=== PATIENT | male | born 1960 | race Caucasian/White ===

== ENCOUNTER 2017-05-23 10:39 | Day surgery (SDC) | payer BC ==
[~2017-05-23 10:39] MED LIST: ACETAMINOPHEN 500 MG TABLET PO PRN; HYDROmorphone HCL 2 MG/ML VIAL IV PRN; MAG HYDROX/ALUMINUM HYD/SIMETH 30 ML UDC PO PRN; MAGNESIUM HYDROXIDE 30 ML UDC PO PRN; ONDANSETRON HCL/PF 2 MG/ML VIAL IV PRN; PROMETHAZINE HCL 25 MG in DEXTROSE 5 % IN WATER 50 ML IV PRN; RINGER'S SOLUTION,LACTATED 1,000 ML IV PRN; ZOLPIDEM TARTRATE 5 MG TABLET PO PRN; ceFAZolin SODIUM 1 GM VIAL IV PRN; diphenhydrAMINE HCL 50 MG/ML VIAL IV PRN; oxyCODONE HCL/ACETAMINOPHEN 1 TAB TABLET PO PRN
[2017-05-23] MEDS ORDERED: RINGER'S SOLUTION,LACTATED 1,000 ML IV ONE (11:15)
[2017-05-23] MEDS ORDERED: BUPIVACAINE HCL/EPINEPHRINE 10 ML VIAL IJ ONE ×2 (11:50)
[2017-05-23] MEDS: ROPIVACAINE HCL/PF 40 MG in NORMAL SALINE 16 ML IJ PRN ×2 (12:11→12:15)
--- NOTE | 2017-05-23 12:28 | OR ---
Operative Report - Dictated Report Narrative: Date: 05/23/2017 Physician: Malachi Mckeon M.D. Hospital Account Manager: Dmitriy Marc PA-C Preoperative diagnosis: Left Knee medial meniscus tear Postoperative diagnosis: Left Knee medial meniscus tear, anterior medial plica Procedure: Left knee arthroscopy with partial medial meniscectomy, excision of anterior medial plica Anesthesia: MAC Plus local Complications: None Estimated blood loss: Minimal Tourniquet time: None Specimens: None Retained implants: None Drains: None Indications: Mr. Sadler Is a 57 year-old gentleman who has been followed in my clinic with complaints of knee pain consistent with suspected medial joint pathology. Physical exam and diagnostic imaging were consistent with these complaints and concern for medial meniscus pathology. Conservative measures have failed including, but not limited to, passage of time, activity modification, medications, and injections. The risks, benefits, and alternatives were discussed in clinic. The risks being , bleeding, infection, blood clots, nerve, tendon, ligament, blood vessel injury, persistent pain, arthrosis, need for additional procedures, and persistent symptoms. Consent was obtained in the clinic. Procedure: After marking the correct extremity in the preoperative holding area, a timeout was performed in the operating room. IV antibiotics consisting of Ancef were administered prior to the procedure. A well-padded tourniquet was applied to the operative upper thigh. The leg was prepped and draped in a standard sterile fashion. 0.5% Marcaine with epinephrine was infused into the projected portal sites as well as the intra-articular space. A jo incision was made for inferior lateral portal. A blunt trocar and cannula was introduced into the knee. The suprapatellar pouch revealed no pathology. The medial patella facet showed grade 1 change. The lateral patella facet showed grade 2 change. The trochlea showed grade 1 change. The medial gutter revealed a thickened abrading anterior medial plica. The medial joint space was then entered utilizing a lateral post and valgus stress. A spinal needle was utilized for guidance into placement of an anterior medial portal. This was placed just superior to the medial meniscus ensuring that we could reach the posterior aspect of the medial joint space. A jo incision was made in the site, and the probe was introduced to the knee. The medial joint space was examined, and the medial femoral condyle showed grade 2 change. The medial tibial plateau showed grade 2 with a small focal area of grade 4 at the area of the meniscus tear. The medial meniscus had a flipped parrot-beak tear involving the posterior one half of the meniscus. It involved the inferior and central 50%. The notch was then examined, and the ACL was noted to be intact. The PCL was noted to be intact. The lateral joint space was then examined using a varus force in the figure 4 position. Lateral femoral condyle showed grade 1 change. Lateral tibial plateau showed grade 1 change. The lateral meniscus showed no tear but small fraying. The lateral gutter showed no pathology. Having identified the surgical pathology, a series of biters and qiana were utilized in order to debride the medial meniscus down to stable margin. This resulted in resection of the posterior one half to a depth of approximately 50%. Where the root of the parrot-beak tear was extended into the red red zone and this was debrided down to essentially the joint capsule. Once it was felt that we adequately addressed the pathology, the knee was thoroughly irrigated. The fluid was evacuated ensuring that we have removed all meniscal, chondral, and any other loose bodies. A final evaluation of the joint showed no additional pathology. The fluid was then evacuated of the knee, and the trocar and camera were removed from the joint. The wounds were closed with interrupted nylon after placing 20 mL of 0.2% ropivacaine into the joint. Dressings consisting of Xeroform, 4 x 4, ABD, soft roll, and an Tono were applied. All sponge, needle, blade, and instrument counts were correct prior to closing the wounds. The patient was awoken and transferred to the postanesthesia care unit in stable condition.
[2017-05-23 16:37] VITALS: BP 151/88
[2017-05-23] MEDS ORDERED: SENNOSIDES/DOCUSATE SODIUM 1 TAB TABLET PO SCH (21:00)
== END 2017-05-23 10:40 | disposition home or self-care (01) ==
LOC: AMB 10:39
PROVIDERS: ATTEND Orthopaedic Surgery
PROC: 0SBD4ZZ Excision of Left Knee Joint, Percutaneous Endoscopic Approach (ICD-10-PCS; principal; 2017-05-23 15:15)
DX: M23.204 Derangement of unspecified medial meniscus due to old tear or injury, left knee (principal); M67.52 Plica syndrome, left knee; E03.9 Hypothyroidism, unspecified; E78.5 Hyperlipidemia, unspecified; K21.9 Gastro-esophageal reflux disease without esophagitis; K58.9 Irritable bowel syndrome, unspecified; F32.9 Major depressive disorder, single episode, unspecified; F17.210 Nicotine dependence, cigarettes, uncomplicated; Z68.34 Body mass index [BMI] 34.0-34.9, adult

== ENCOUNTER 2019-05-18 09:02 | Observation (INO) ==
--- NOTE | 2019-05-18 09:27 | ERNOTE ---
Neuro HPI ER Record Date of Service: 05/18/19 Presenting Symptoms: other - not acting right Time Seen by Provider: 05/18/19 09:11 Source: patient Exam Limitations: no limitations Immunizations: IMMUNIZATION HX History of Influenza Vaccine More Information Required Hx Pneumococcal Vaccination More Information Required Allergies/Adverse Reactions: Allergies Allergy/AdvReac Type Severity Reaction Status Date / Time fenofibrate Allergy Intermediate hives Verified 02/26/19 13:17 sulfamethizole Allergy Intermediate hives Verified 02/26/19 13:17 Home Medications: HOME MEDICATIONS Aspirin [Aspirin Enteric Coated] 81 mg PO DAILY 07/13/15 [Last Taken Unknown] Cholecalciferol (Vitamin D3) [Vitamin D3] 50,000 unit PO Q7D 07/13/15 [Last Taken Unknown] Calcium Carbonate/Vitamin D3 [Calcium 500 + Vit D3 400 Tab] 1 ea PO DAILY 05/19/17 [Last Taken Unknown] fenofibrate nanocrystallized 145 mg tablet 145 mg PO DAILY #90 tab 08/07/18 [Last Taken Unknown] lansoprazole 30 mg capsule,delayed release 30 mg PO DAILY #30 cap 08/26/18 [Last Taken Unknown] diflunisal 500 mg tablet 500 mg PO TID #90 tab 11/10/18 [Last Taken Unknown] atorvastatin 40 mg tablet 40 mg PO HS #30 tab 12/07/18 [Last Taken Unknown] ergocalciferol (vitamin D2) 50,000 unit capsule 50,000 unit PO QWEEK #14 cap 01/06/19 [Last Taken Unknown] lamotrigine 200 mg tablet 200 mg PO QHS #30 tab 02/12/19 [Last Taken Unknown] aripiprazole 15 mg tablet See Rx Instructions PO DAILY #4 tab 02/26/19 [Last Taken Unknown] lorazepam 1 mg tablet 1 mg PO TID PRN 02/26/19 [Last Taken Unknown] lurasidone 20 mg tablet 20 mg PO DAILY #15 tab 02/26/19 [Last Taken Unknown] levothyroxine 25 mcg tablet See Rx Instructions .ROUTE .COMPLEX #90 tablet 04/26/19 [Last Taken Unknown] probenecid 500 mg-colchicine 0.5 mg tablet 1 tab PO BID #60 tab 05/03/19 [Last Taken Unknown] - History of Present Illness Narrative: Patient presents to the ED from work for not acting right. According to work he was not acting right yesterday and this was worse today at work so he was brought here. He does not know why he is here. he has no specific complaints. No headache, no chest pain. No abdominal pain. He really cannot tell me what he thinks is wrong. Work noticed behavior changes. No fever. Denies trauma. No N/T/W. Has not seen anyone else for this. He is not acting normally, seems confused and not behaving normally. Worsenign since yesterday. Onset: other - present and apparently gradually worsening since yesterday. - Character of Deficits New weakness: Present: other - none Altered sensation: Present: other - none Additional Deficits: Absent: vision problems, impaired speech, decrease ability to stand, off balance Baseline Cognition: Present: alert, oriented x 4 Baseline Gait: Present: walks w/o assistance Associated Symptoms: Denies: fever/chills, neck/back pain, headache, seizure, decreased responsiveness Prior Treament: Denies: recently seen Review of Systems - Review of Systems Constitutional: Absent: fever EYE: Present: no symptoms reported ENT: Absent: sore throat Respiratory: Absent: shortness of breath Cardiology: Absent: chest pain Gastrointestinal/Abdominal: Absent: abdominal pain Genitourinary: Absent: dysuria Neurological: Absent: weakness, numbness, tingling All Other Systems: All systems neg except as marked Medical History (Updated 05/18/19 @ 14:02 by ANGY Pelayo) GERD (gastroesophageal reflux disease) (Chronic) Bipolar II disorder (Acute) Current episode depressed, moderate, in partial remission GERD (gastroesophageal reflux disease) (Chronic) Onset Date: Unknown Hypothyroidism (Chronic) Alcohol abuse (Chronic) Onset Date: Unknown Bipolar disorder, current episode mixed, moderate (Chronic) Onset Date: U nknown Improving Depression (Chronic) Onset Date: Unknown Bipolar affective disorder (Chronic) Onset Date: Unknown Arthritis (Chronic) Onset Date: Unknown Anxiety (Chronic) Onset Date: Unknown Environmental allergies Onset Date: Unknown Gout Onset Date: Unknown Problem with sexual function Onset Date: Unknown Colon polyps Onset Date: Unknown Irregular bowel habits Onset Date: Unknown Meningitis Onset Date: Unknown Psychiatric inpatient Onset Date: Unknown Surgical History: Surgical History (Updated 05/18/19 @ 14:02 by ANGY Pelayo) H/O adenoidectomy Onset Date: Unknown H/O colonoscopy Onset Date: ~2014 dr coto 2006- tubular adenoma. dr kelley 2014- negative recheck 10 years History of arthroscopic knee surgery Onset Date: Unknown left 2017 right 2008 History of tonsillectomy Onset Date: Unknown Hx of esophagogastroduodenoscopy Onset Date: Unknown Family History: Family History (Updated 06/22/18 @ 14:10 by Lisa Yang LPN) Mother , age 71 Myocardial infarction Brother , age 55 Hepatitis C Social History: (Last Reviewed 05/18/19 @ 09:24 by Trevor Grijalva MD) Social History: fdc: No Marital status: household members: none current occupational status: employed current occupation: factory machine computer operator Highest education level completed: high school graduate Service: No Tobacco: Smoking Status: Current some day smoker Alcohol: alcohol intake: current Substance Use: substance use type: does not use Dietary Habits: caffeine: Yes Physical Exam - Physical Exam General Appearance: Present: alert, no apparent distress Head Exam: Present: normal inspection, no evidence of injury Eye Exam: Normal inspection: bilateral, PERRL: bilateral Ears, Nose, Throat: Present: normal ENT inspection Neck: Present: normal inspection, nontender, supple, other - no meningeal signs Respiratory: Present: no respiratory distress, normal breath sounds, no accessory muscle use, lungs clear Cardiovascular/Chest: Present: regular rate, rhythm, normal peripheral pulses Gastrointestinal/Abdominal: Present: normal bowel sounds, nontender, nondistend ed, soft Back Exam: Present: normal range of motion. Absent: CVA tenderness (R), CVA tenderness (L) Extremity Exam: Present: normal inspection, non-tender, normal range of motion Neurological Exam: Present: alert, no motor/sensory deficits, other - NIH - 0. He knows month and year, misses day of month. Knows location and president . He does however just stare at the ceiling, seems very slow anddoes not seem to be acting normally. Skin Exam: Present: normal color, warm/dry Morrow Coma Scale - Assess Eye Opening: Spontaneous Motor: Obeys Commands Verbal: Oriented - Total Coma Scale Total: 15 Progress - Results and Orders Patient's Lab Results:: I have reviewed the patient's lab results. - Vital Signs Patient's Vital Signs:: I have reviewed the patient's vital signs. Vital Signs: Vital Signs 08/06/19 09:02 Temperature 37.0 C Pulse Rate 109 H Respiratory Rate 15 Blood Pressure 160/100 H O2 Sat by Pulse Oximetry 100 - EKG EKG #1 EKG: NSR EKG read: Interp. by me EKG Comments: NSR rate 99. Non-specific, no STEMI noted. - CT/Ultrasound CT/Ultrasound Narrative: I reviewed official radiology report for head CT - Progress/Reassessment Chief Complaint: Altered Mental Status Progress Note-Subjective: 05/18/19 14:21 Patient has no clear etiology of his Sx. Seen in ED by Psych and at that time he was not oriented. Psych felt is was not likely a primary psychiatric issue. He certainly cannot be discharged the way he is. I spoke with Dr Pate who will admit with TSH added on and MRI ordered. Patient and family agreeable. Departure Clinical Impression: Mental status alteration, Behavioral change - Departure Disposition: Still a patient Condition: Stable Referrals: Isidro Palmer MD [Primary Care Provider] -
[2019-05-18 09:45] LABS: Hematocrit 43.9 % (42.0-52.0); Hemoglobin 15.4 gm/dL (13.5-18.0); Mean Corpuscular Hgb Conc 35.1 g/dl (32-36); Mean Platelet Volume 9.5 fl (8-11.3); Neutrophil # 4.8 K/mm3 (1.3-6.0); Neutrophil % 71.9 % (42-75.0); Platelet Count 303 K/mm3 (150-450); Red Blood Count 4.67 M/mm3 (4.7-6.0); Red Cell Distribution Width 13.5 % (11.5-14.0); White Blood Count 6.6 K/mm3 (4.0-10.5)
[2019-05-18 10:05] LABS: ALT 28 U/L (19-67); AST 31 U/L (0-48); Albumin * 3.6 gm/dl (3.4-5.0); Alkaline Phosphatase * 47 U/L (50-170); Anion Gap 19.3 mmol/L (6.8-13.8); BUN/Creatinine Ratio 15.1 (9.0-21.6); Bilirubin, Total 0.7 mg/dL (0.0-1.1); Blood Urea Nitrogen 23 mg/dL (6-23); Ca. Corrected For Albumin 9.3 mg/dL (8.4-10.2); Calcium * 9.3 mg/dL (7.9-10.9); Carbon Dioxide 21.7 mmol/L (24-32.6); Chloride 105 mmol/L (97-106); Glucose * 110 mg/dL (70-110); Salicylate 7.6 mg/dL (2.8-20.0); Sodium 142 mmol/L (132-142); Total Protein 6.7 gm/dL (6.2-8.2); Troponin I 0.029 ng/mL (0.00-0.10)
[2019-05-18 12:37] LABS: Urine Bilirubin Negative (NEGATIVE); Urine Blood Negative /ul (NEGATIVE); Urine Ketone Negative (NEGATIVE); Urine Nitrite Negative (NEGATIVE); Urine Protein Negative (NEGATIVE); Urine Urobilinogen Normal (NORMAL)
[2019-05-18 12:47] LABS: Urine Appearance Clear (CLEAR); Urine Bacteria None Seen; Urine Color Yellow; Urine RBC None Seen /hpf (0-5); Urine WBC TRACE /hpf (0-5)
[2019-05-18 12:54] LABS: Cocaine Ur Negative (NEGATIVE); Urine Barbiturate Negative (NEGATIVE); Urine Benzodiazepines Negative (NEGATIVE); Urine Opiates Negative (NEGATIVE); Urine PCP Negative (NEGATIVE); Urine THC Negative (NEGATIVE)
[2019-05-18] MEDS ORDERED: MULTIVIT INFUSN,ADULT 4,VIT K 10 ML, THIAMINE HCL 100 MG in NORMAL SALINE 1,000 ML IV SCH (13:30)
--- NOTE | 2019-05-18 14:02 | CONS ---
[facility] - General Date of Service: 05/18/19 Narrative: Isidro is a 59 year old male with a history of bipolar disorder and alcohol abuse who presented to emergency department 05/18/19. Isidro reportedly appeared for work this morning as scheduled but was not acting himself and seemed confused so his automation and controls supervisor at work sent him to emergency department for evaluation. Isidro has been receiving outpatient psychiatric treatment for bipolar disorder from this author and was last evaluated February 2019. Isidro failed to attend scheduled follow- up appointment in March 2019 after changing Abilify to Latuda to better treat depression. Isidro is not answering most questions appropriately. He states, "I'm fine" repeatedly when asked to identify the year and again states "I'm fine" when asked to identify the advertising vice president. Isidro answers "I'm fine" in response to most questions asked of him. He is able to identify he is in [facility] and able to state his first and last name correctly. Initially, Isidro states "Evelyne" when asked about medications he has been taking recently. Isidro later does state that he has been taking Lamictal once a day every day. He states, "this morning" when asked the time of his last dose of PRN lorazepam. Earlier in assessment, Isidro had stated he forgot to take his medications this morning. Isidro states "no, ma'am" when asked if he had used any drugs recently. He also states "no, ma'am" when asked how much alcohol he has been consuming in the last week. He does not answer questions about sleep or appetite. Isidro denies suicidal ideation or homicidal ideation. Isidro's brother and reported power of pass worker reports Isidro has had some moments of confusion over the last few months. He states that one day, Isidro had trouble parking his car at work then left his car running all day while he was at work and didn't realize it. Isidro's brother believes this occurred sometime in February after starting a new medication in February. Per Isidro's brother, he stopped taking Latuda after that incident of leaving his car running because he believed that was the cause of his confusion that day. Isidro's brother also states Isidro has made some odd remarks that don't make sense such as stating, "I parked where you told me to," after Isidro's brother called Isidro one morning to check on him after spending the evening prior with him. Isidro's brother states Isidro's statement of "I parked where you told me to" was not prompted and was not an appropriate response during their conversation. Isidro's brother states Isidro had told him that he has been feeling depressed and that Isidro had told him he had scheduled an appointment with this author to have medications for depression adjusted. Per Isidro's brother, aside from the few moments of odd remarks or the day of leaving his car running, Isidro has been acting "normal" and conversing appropriately. Isidro's brother states Isidro has had moments of more acute confusion and moments of being more oriented since Isidro's brother arrived at emergency department this morning. Isidro's brother confirms that Isidro has been continuing to drink 6-12 beers nearly every day for the last several months and has not made an attempt to stop drinking alcohol recently. Isidro's brother states he did have one episode of profound confusion and altered mental status approximately 20 years ago and states this was related to him using illicit drugs such as LSD. Isidro's brother also notes Isidro has been working a lot of mandatory overtime at work recently. Source: patient, family, RN/MD Exam Limitations: clinical condition - confusion - History of Present Illness Allergies/Adverse Reactions: Allergies fenofibrate Allergy (Intermediate, Verified 02/26/19 13:17) hives sulfamethizole Allergy (Intermediate, Verified 02/26/19 13:17) hives Home Medications: Home Medications Medication Instructions Recorded Last Taken Aspirin [Aspirin Enteric Coated] 81 mg PO DAILY 07/13/15 Unknown Cholecalciferol (Vitamin D3) 50,000 unit PO Q7D 07/13/15 Unknown [Vitamin D3] Calcium Carbonate/Vitamin D3 1 ea PO DAILY 05/19/17 Unknown [Calcium 500 + Vit D3 400 Tab] fenofibrate nanocrystallized 145 145 mg PO DAILY #90 tab 08/07/18 Unknown mg tablet lansoprazole 30 mg capsule,delayed 30 mg PO DAILY #30 cap 08/26/18 Unknown release diflunisal 500 mg tablet 500 mg PO TID #90 tab 11/10/18 Unknown atorvastatin 40 mg tablet 40 mg PO HS #30 tab 12/07/18 Unknown ergocalciferol (vitamin D2) 50,000 50,000 unit PO QWEEK #14 cap 01/06/19 Unknown unit capsule lamotrigine 200 mg tablet 200 mg PO QHS #30 tab 02/12/19 Unknown aripiprazole 15 mg tablet See Rx Instructions PO DAILY #4 tab 02/26/19 Unknown lorazepam 1 mg tablet 1 mg PO TID PRN 02/26/19 Unknown lurasidone 20 mg tablet 20 mg PO DAILY #15 tab 02/26/19 Unknown levothyroxine 25 mcg tablet See Rx Instructions .ROUTE 04/26/19 Unknown .COMPLEX #90 tablet probenecid 500 mg-colchicine 0.5 1 tab PO BID #60 tab 05/03/19 Unknown mg tablet Procedures Closure of skin and subcutaneous tissue of other sites (03/30/08) ENDO RECTUM POLYPECTOMY (04/11/10) Endoscopic polypectomy of large intestine (03/23/08) Excision of Left Knee Joint, Percutaneous Endoscopic Approach (05/23/17) Excision of semilunar cartilage of knee (11/26/07) Inspection of Lower Intestinal Tract, Via Natural or Artificial Opening Endoscopic (07/28/15) Review of Systems - Review of Systems Generalized/Overall Review: Present: No Symptoms Reported Neurological: Present: Other - confusion Physical Examination - Exam Narrative: Visit lasts approximately 20 minutes. Vital Signs: Vital Signs - Last Taken Temp 37.0 C 05/18/19 09:10 Pulse 97 05/18/19 10:01 Resp 14 05/18/19 10:01 BP 140/89 H 05/18/19 10:01 Pulse Ox 99 05/18/19 10:01 O2 Oxygen Delivery Method Room Air Constitutional: Present: Alert, Cooperative. Absent: Oriented x3 Neurologic: Present: alert, other - oriented to self and place. States year is "[birth year]." Unable to identify mechanical engineering coop.. Absent: oriented x 3 Appearance: Present: appropriate appearance, impaired recent memory. Absent: appropriate insight Eye contact: Present: good eye contact, decreased rate of speech Thoughts: Present: no apparent hallucination - Results and Findings: Narrative: Discussed plan of care with Dr. Grijalva. Acute mental status changes that patient is experiencing not likely related to bipolar depression and this author has not adjusted any psychotropic medications recently. Patient's brother states he will look to see what medications patient has been taking recently. Concern for mental status change being related to chronic alcohol abuse. He advises he will obtain brain MRI for further evaluation. Lab/Microbiology results last 24 hrs: Abnormal/Pending Laboratory Last 24 HRS 05/18/19 05/18/19 09:38 09:38 RBC 4.67 L MCH 33.0 H Immature Gran % (Auto) 0.60 H Immature Gran # (Auto) 0.04 H Lymphocytes % 12.6 L Monocytes % 12.6 H Lymphocytes # 0.83 L Carbon Dioxide 21.7 L Anion Gap 19.3 H Creatinine 1.52 H Est GFR (Non-Af Amer) 50 L Alkaline Phosphatase 47 L Acetaminophen Less than 0.2 L - Assessments/Findings (1) Mental status alteration Problem: Acute
[2019-05-18] MEDS ORDERED: lamoTRIgine 100 MG TABLET PO SCH (21:00)
[2019-05-18] MEDS ORDERED: ROSUVASTATIN CALCIUM 20 MG TABLET PO SCH (21:00)
[2019-05-18] MEDS ORDERED: ROSUVASTATIN CALCIUM 10 MG TABLET ONE (21:31)
[2019-05-19] MEDS ORDERED: NORMAL SALINE 1,000 ML IV PRN (06:00)
[2019-05-19] MEDS ORDERED: LEVOTHYROXINE SODIUM 25 MCG TABLET PO SCH (07:00)
[2019-05-19] MEDS ORDERED: PANTOPRAZOLE SODIUM 40 MG TABLET.EC PO SCH (07:00)
[2019-05-19] MEDS: DIFLUNISAL 500 MG PO SCH ×3 (08:40→16:34)
[2019-05-19] MEDS ORDERED: ASPIRIN 81 MG TABLET.DR PO SCH (09:00)
--- NOTE | 2019-05-19 11:46 | HP ---
Chief Complaint - Chief Complaint Date of Service: 05/19/19 Time of Service: 11:12 Chief Complaint: ams History of Present Illness: 59-year-old male presented to the ER with altered mental status. Patient has history of bipolar disorder has been off his medications for the last few months. Patients family stated that he reported to work as usual but was unable to follow commands and was very flat affected. Boss [facility]. According to family members he was not acting right today before either. Today patient is fairly nonverbal, only responding to questions with I am fine or okay. Patient is alert oriented x1, again his name right only. Tox screen in the ER was negative. MRI of the brain also performed while in the ER which came back showing no evidence of acute infarct or intracranial mass. There was mild lateral ventricular enlargement noted on exam with possible normal pressure hydrocephalus. Discussed the symptoms of this issue with the patient we denied any gait disturbances or issues with incontinence. Family also denied any of these issues. His lab work-up initially was fairly benign with a normal white count and no shift. He did have a mild acute kidney injury with a creatinine of 1.52, baseline around 1.3. Other labs within normal limits and are not concerning. Initial vital signs are stable. Patient was admitted to the floor due to altered mental status without a cause. Evelyne Galindo track service worker was consulted to evaluate the patient and thought that there was a medical cause behind his confusion and flat affect and not just solely due to his bipolar depression. Medical History (Updated 05/18/19 @ 14:25 by Trevor Grijalva MD) GERD (gastroesophageal reflux disease) (Chronic) Bipolar II disorder (Acute) Current episode depressed, moderate, in partial remission GERD (gastroesophageal reflux disease) (Chronic) Onset Date: Unknown Hypothyroidism (Chronic) Alcohol abuse (Chronic) Onset Date: Unknown Bipolar disorder, current episode mixed, moderate (Chronic) Onset Date: Unknown Improving Depression (Chronic) Onset Date: Unknown Bipolar affective disorder (Chronic) Onset Date: Unknown Arthritis (Chronic) Onset Date: Unknown Anxiety (Chronic) Onset Date: Unknown Environmental allergies Onset Date: Unknown Gout Onset Date: Unknown Problem with sexual function Onset Date: Unknown Colon polyps Onset Date: Unknown Irregular bowel habits Onset Date: Unknown Meningitis Onset Date: Unknown Psychiatric inpatient Onset Date: Unknown Surgical History: Surgical History (Updated 05/18/19 @ 14:02 by ANGY Pelayo) H/O adenoidectomy Onset Date: Unknown H/O colonoscopy Onset Date: ~2014 dr coto 2005- tubular adenoma. 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 Highest education level completed: high school graduate Service: No Tobacco: Smoking Status: Current some day smoker Alcohol: alcohol intake: current Substance Use: substance use type: does not use Dietary Habits: caffeine: Yes Review Of Systems (GEN) - Review of Systems Additional Comments: Review of systems unable to be obtained due to patient's flat affect and refusal to answer questions Immunizations: IMMUNIZATION HX History of Influenza Vaccine More Information Required Hx Pneumococcal Vaccination More Information Required Allergies/Adverse Reactions: Allergies Allergy/AdvReac Type Severity Reaction Status Date / Time fenofibrate Allergy Intermediate hives Verified 05/18/19 16:04 sulfamethizole Allergy Intermediate hives Verified 05/18/19 16:04 Home Medications: HOME MEDICATIONS Aspirin [Aspirin Enteric Coated] 81 mg PO DAILY 07/13/15 [Last Taken Unknown] Calcium Carbonate/Vitamin D3 [Calcium 500 + Vit D3 400 Tab] 1 ea PO DAILY 05/19/17 [Last Taken Unknown] fenofibrate nanocrystallized 145 mg tablet 145 mg PO DAILY #90 tab 08/07/18 [Last Taken Unknown] lansoprazole 30 mg capsule,delayed release 30 mg PO DAILY #30 cap 08/26/18 [Last Taken Unknown] diflunisal 500 mg tablet 500 mg PO TID #90 tab 11/10/18 [Last Taken Unknown] atorvastatin 40 mg tablet 40 mg PO HS #30 tab 12/07/18 [Last Taken Unknown] ergocalciferol (vitamin D2) 50,000 unit capsule 50,000 unit PO QWEEK #14 cap 01/06/19 [Last Taken Unknown] lamotrigine 200 mg tablet 200 mg PO QHS #30 tab 02/12/19 [Last Taken Unknown] aripiprazole 15 mg tablet See Rx Instructions PO DAILY #4 tab 02/26/19 [Last Taken Unknown] lorazepam 1 mg tablet 1 mg PO TID PRN 02/26/19 [Last Taken Unknown] lurasidone 20 mg tablet 20 mg PO DAILY #15 tab 02/26/19 [Last Taken Unknown] levothyroxine 25 mcg tablet See Rx Instructions .ROUTE .COMPLEX #90 tablet 04/26/19 [Last Taken Unknown] probenecid 500 mg-colchicine 0.5 mg tablet 1 tab PO BID #60 tab 05/03/19 [Last Taken Unknown] Exam - Exam Vital Signs: Vital Signs - Last Taken Temp 36.4 C 05/19/19 07:00 Pulse 64 05/19/19 07:00 Resp 17 05/19/19 07:00 BP 175/89 H 05/19/19 07:00 Pulse Ox 99 05/19/19 07:00 Constitutional: Present: Alert, Looks Older than stated age. Absent: Oriented x3 - X1, Cooperative Eye Exam: bilateral eye: normal inspection, PERRL, EOMI Neck: Present: non-tender, full range of motion, supple Back Exam: Present: normal inspection, no CVA tenderness Respiratory: Present: chest non-tender, lungs clear Cardiovascular/Chest: Present: normal peripheral pulses, regular rate, rhythm, no murmur Abdomen: Present: Normal bowel sounds, soft, nontender Neurologic: Present: other - Unable to perform due to patient's unwillingness to cooperate Appearance: Present: disheveled, impaired insight, impaired remote memory Eye contact: Absent: cooperative, good eye contact Thoughts: Absent: normal mood /affect - Patient fairly flat affect, blunted Diagnostic Studies: Laboratory Results WBC 6.6 K/mm3 (4.0-10.5) 05/18/19 09:38 RBC 4.67 M/mm3 (4.7-6.0) L 05/18/19 09:38 Hgb 15.4 gm/dL (13.5-18.0) 05/18/19 09:38 Hct 43.9 % (42.0-52.0) 05/18/19 09:38 MCV 94.0 fl (78-100) 05/18/19 09:38 MCH 33.0 pg (27-31) H 05/18/19 09:38 MCHC 35.1 g/dl (32-36) 05/18/19 09:38 RDW 13.5 % (11.5-14.0) 05/18/19 09:38 Plt Count 303 K/mm3 (150-450) 05/18/19 09:38 MPV 9.5 fl (8-11.3) 05/18/19 09:38 Immature Gran % (Auto) 0.60 % (0.001-0.429) H 05/18/19 09:38 Immature Gran # (Auto) 0.04 K/mm3 (0.000-0.0310) H 05/18/19 09:38 71.9 % (42-75.0) 05/18/19 09:38 12.6 % (20-51) L 05/18/19 09:38 12.6 % (0.0-9) H 05/18/19 09:38 1.8 % (0.0-3.0) 05/18/19 09:38 0.5 % (0.0-1.0) 05/18/19 09:38 Nucleated RBC % 0.0 k/mm3 (0-1) 05/18/19 09:38 4.8 K/mm3 (1.3-6.0) 05/18/19 09:38 0.83 k/mm3 (1.5-3.5) L 05/18/19 09:38 0.8 k/mm3 (0.0-1.0) 05/18/19 09:38 0.1 k/mm3 (0.0-0.7) 05/18/19 09:38 Absolute Basophils 0.0 k/mm3 (0.0-0.1) 05/18/19 09:38 Sodium 142 mmol/L (132-142) 05/18/19 09:38 142 mmol/L (130-142) 05/18/19 09:38 Potassium 4.0 mmol/L (3.4-4.6) 05/18/19 09:38 Chloride 105 mmol/L (97-106) 05/18/19 09:38 Carbon Dioxide 21.7 mmol/L (24-32.6) L 05/18/19 09:38 19.3 mmol/L (6.8-13.8) H 05/18/19 09:38 BUN 23 mg/dL (6-23) 05/18/19 09:38 1.52 mg/dL (0.4-1.4) H 05/18/19 09:38 Est GFR (Non-Af Amer) 50 mL/min (60-130) L 05/18/19 09:38 15.1 (9.0-21.6) 05/18/19 09:38 110 mg/dL (70-110) 05/18/19 09:38 Calcium 9.3 mg/dL (7.9-10.9) 05/18/19 09:38 Calcium Adj for Albumin 9.3 mg/dL (8.4-10.2) 05/18/19 09:38 0.7 mg/dL (0.0-1.1) 05/18/19 09:38 AST 31 U/L (0-48) 05/18/19 09:38 ALT 28 U/L (19-67) 05/18/19 09:38 47 U/L (50-170) L 05/18/19 09:38 22.0 mcmol/L (11-35) 05/18/19 09:38 0.029 ng/mL (0.00-0.10) 05/18/19 09:38 6.7 gm/dL (6.2-8.2) 05/18/19 09:38 3.6 gm/dl (3.4-5.0) 05/18/19 09:38 TSH 0.942 uIU/mL (0.358-3.74) 05/18/19 09:40 Yellow 05/18/19 12:30 Clear (CLEAR) 05/18/19 12:30 6.0 pH (5.0-7.0) 05/18/19 12:30 Ur Specific [place] 1.010 SP.GR. (1.005-1.030) 05/18/19 12:30 Negative mg/dL (NEGATIVE) 05/18/19 12:30 Negative mg/dL (NEGATIVE) 05/18/19 12:30 Negative mg/dL (NEGATIVE) 05/18/19 12:30 Negative /ul (NEGATIVE) 05/18/19 12:30 Negative (NEGATIVE) 05/18/19 12:30 Negative mg/dl (NEGATIVE) 05/18/19 12:30 Normal EU/dl (NORMAL) 05/18/19 12:30 Ur Leukocyte Esterase Negative /ul (NEGATIVE) 05/18/19 12:30 None seen /hpf (0-5) 05/18/19 12:30 Trace /hpf (0-5) 05/18/19 12:30 Ur Epithelial Cells Trace /hpf (0-5) 05/18/19 12:30 None seen (NONE) 05/18/19 12:30 No culture indicated 05/18/19 12:30 Salicylates 7.6 mg/dL (2.8-20.0) 05/18/19 09:38 Negative (NEGATIVE) 05/18/19 12:30 Acetaminophen Less than 0.2 mcg/mL (10.0-30.0) L 05/18/19 09:38 Negative (NEGATIVE) 05/18/19 12:30 Ur Phencyclidine Scrn Negative (NEGATIVE) 05/18/19 12:30 Urine Amphetamine Negative (NEGATIVE) 05/18/19 12:30 U Benzodiazepines Scrn Negative (NEGATIVE) 05/18/19 12:30 Negative (NEGATIVE) 05/18/19 12:30 Negative (NEGATIVE) 05/18/19 12:30 Ethyl Alcohol Less than 3.0 mg/dL (0.0-10.0) 05/18/19 09:38 Assessment/Plan - Narrative Narrative: Mr. Sadler is a 59-year-old male presented to the ER for altered mental status. Admitted to the floor under observation for this issue, currently being evaluated by psych. He has not taken his medications for his anxiety or bipolar disorder and depression for the last 3 months, will get this restarted as soon as he is willing to take oral medications. Will reevaluate tomorrow as I cannot find a medical cause for his altered mental status at this time. Imaging and lab work of all been within normal limits. Patient's vital signs been stable. We will discuss this case further with Evelyne Galindo for further insight and input on better treatment for his depression. We will also discuss this with his family to see what resources they have available to them and also what help they may be of the offer prior to discharge. Patient currently n.p.o. while he is nonverbal, banana bag running at this time. We will also start him on thiamine once he is able to take oral medications. No SCDs or DVT prophylaxis at this time as he likely be here less than 2 days. Nurse will call with any questions or concerns - Assessment/Plan (1) Mental status alteration Problem: Acute (2) Behavioral change Problem: Acute (3) Bipolar II disorder Problem: Acute (4) Alcohol abuse Problem: Chronic (5) Depression Problem: Chronic Qualifiers: Depression Type: major depressive disorder Major depression recurrence: recurrent Active/Remission status: currently active Major depression episode severity: moderate Qualified Code(s): F33.1 - Major depressive disorder, recurrent, moderate
[2019-05-19] MEDS ORDERED: SERTRALINE HCL 50 MG TABLET PO SCH (12:45)
--- NOTE | 2019-05-19 13:01 | CONS ---
[facility] - General Date of Service: 05/19/19 Narrative: Isidro is a 59 year old male with a history of bipolar depression who presented to emergency department 05/18/19 with confusion. Isidro was admitted to medical/surgical unit yesterday for further evaluation of confusion. Dr. Pate requested psychiatric consult for evaluation/treatment of depression. Isidro's brother who reportedly is his medical power of employment law attorney and Isidro's daughter, Lorie Foley, are present during assessment with patient's permission. Isidro reports he has been feeling more depressed over the last few months. He states he called this author's office last week to schedule a follow-up appointment for depression at his sister's advice. Isidro was last evaluated by this author on outpatient basis in February 2019 and at that time, Abilify was changed to Latuda due to continued depression. Isidro states he doesn't think he ever filled Latuda at pharmacy or started taking Latuda in February 2019. He states he did not attend his scheduled follow-up appointment after Latuda was prescribed because he had been drinking a lot of alcohol that day. Isidro's brother and daughter state Isidro told them in February 2019 that he did fill and start taking the Latuda in February 2019 and told them that he didn't like the way Latuda made him feel so he stopped taking it. Isidro's brother states sIidro had an episode one day while taking Latuda in which he had trouble parking his car at work and left his car running all day then called his brother and told him he couldn't find the keys to his car. Per Isidro's brother, he stopped taking Latuda shortly after that. Later in this assessment, Isidro states, "I think I decided I couldn't afford it anymore" in regards to Latuda. Isidro's brother states that is not what Isidro had expressed to him in the past. Isidro is able to name the month as May, the year as 2018, his current location as [facility], his name as Isidro Doroteo, and [place] Sam as the president. Isidro states he still feels confused this morning and states he has been feeling confused at times during the last several weeks. Isidro's daughter and Isidro's brother state Isidro is more alert today but is still not himself and not at his baseline; they state Isidro still seems very confused today and is having trouble remembering things. Isidro's daughter states Isidro kept stating he isn't drinking enough water and he needs to drink water despite his daughter repeatedly pointing out to Isidro that he had a full cup of water in front of him to drink. Isidro's brother states he noticed Isidor seemed confused last Friday or Friday because Isidro brought his brother a coozie that Isidro's brother had left at Isidro's house the night prior; when Isidro's brother had called Isidro to see when he stopped over, Isidro told his brother that he "parked where you told me to" and Isidro's brother states that comment did not make sense given the context of the conversation. Isidro states he has been feeling more anxious recently. He states he has had thoughts that he would be better off . Isidro states he does not have a plan to commit suicide and does not intend to commit suicide. He states he has not attempted to commit suicide before. Isidro denies homicidal ideation. He denies experiencing hallucinations. When asked how much alcohol he has been consuming, Isidro states "I don't know. I haven't had anything to drink today." Isidro's daughter and Isidro's brother state Isidro has been drinking at least 6 cans of beer every night and he has drank this heavily for many years. Isidro denies recent illicit drug use. Isidro states he has been sleeping more than usual. He states he sleeps 16 hours every day. He also states he has been working a lot of overtime lately and he always works 10 hour shifts. Isidro states his appetite has been decreased. Source: patient, family, RN/MD, RN notes reviewed - History of Present Illness Allergies/Adverse Reactions: Allergies fenofibrate Allergy (Intermediate, Verified 05/18/19 16:04) hives sulfamethizole Allergy (Intermediate, Verified 05/18/19 16:04) hives Home Medications: Home Medications Medication Instructions Recorded Last Taken Aspirin [Aspirin Enteric Coated] 81 mg PO DAILY 07/13/15 Unknown Calcium Carbonate/Vitamin D3 1 ea PO DAILY 05/19/17 Unknown [Calcium 500 + Vit D3 400 Tab] fenofibrate nanocrystallized 145 145 mg PO DAILY #90 tab 08/07/18 Unknown mg tablet lansoprazole 30 mg capsule,delayed 30 mg PO DAILY #30 cap 08/26/18 Unknown release diflunisal 500 mg tablet 500 mg PO TID #90 tab 11/10/18 Unknown atorvastatin 40 mg tablet 40 mg PO HS #30 tab 12/07/18 Unknown ergocalciferol (vitamin D2) 50,000 50,000 unit PO QWEEK #14 cap 01/06/19 Unknown unit capsule lamotrigine 200 mg tablet 200 mg PO QHS #30 tab 02/12/19 Unknown aripiprazole 15 mg tablet See Rx Instructions PO DAILY #4 tab 02/26/19 Unknown lorazepam 1 mg tablet 1 mg PO TID PRN 02/26/19 Unknown lurasidone 20 mg tablet 20 mg PO DAILY #15 tab 02/26/19 Unknown levothyroxine 25 mcg tablet See Rx Instructions .ROUTE 04/26/19 Unknown .COMPLEX #90 tablet probenecid 500 mg-colchicine 0.5 1 tab PO BID #60 tab 05/03/19 Unknown mg tablet Procedures Closure of skin and subcutaneous tissue of other sites (03/30/08) ENDO RECTUM POLYPECTOMY (04/11/10) Endoscopic polypectomy of large intestine (03/23/08) Excision of Left Knee Joint, Percutaneous Endoscopic Approach (05/23/17) Excision of semilunar cartilage of knee (11/26/07) Inspection of Lower Intestinal Tract, Via Natural or Artificial Opening Endos copic (07/28/15) Medications - Medications Current Medications: Current Medications Aspirin (Aspirin Enteric Coated) 81 mg PO DAILY [facility] Stop: 06/18/19 09:01 Last Admin: 05/19/19 08:40 Dose: 81 mg Documented by: Lamotrigine (Lamictal) 200 mg PO HS [facility] Stop: 06/17/19 21:01 Last Admin: 05/19/19 03:29 Dose: Not Given Documented by: Levothyroxine Sodium (Synthroid) 25 mcg PO QDAC [facility] Stop: 06/18/19 07:01 Last Admin: 05/19/19 07:21 Dose: 25 mcg Documented by: Diflunisal 500 Mg 500 mg PO TID [facility] Stop: 06/18/19 09:01 Last Admin: 05/19/19 12:24 Dose: 500 mg Documented by: Pantoprazole Sodium (Protonix) 40 mg PO DAILY@0700 [facility] Stop: 06/18/19 07:01 Last Admin: 05/19/19 07:21 Dose: 40 mg Documented by: Rosuvastatin Calcium (Crestor) 20 mg PO HS [facility] Stop: 06/17/19 21:01 Last Admin: 05/19/19 03:29 Dose: Not Given Documented by: Review of Systems - Review of Systems Generalized/Overall Review: Present: Fatigue Neurological: Present: Depressed, Other - Confusion Physical Examination - Exam Vital Signs: Vital Signs - Last Taken Temp 37 C 05/19/19 11:00 Pulse 84 05/19/19 11:00 Resp 17 05/19/19 11:00 BP 155/95 H 05/19/19 11:00 Pulse Ox 96 05/19/19 11:00 O2 Oxygen Delivery Method Room Air Constitutional: Present: Alert, Oriented x3 Extremity: Present: normal range of motion Appearance: Present: appropriate appearance - dressed in hospital gown, impaired insight, impaired recent memory Eye contact: Present: cooperative, other - eye contact fair - stares at ceiling for periods of time while conversing Thoughts: Present: no apparent hallucination - Results and Findings: Narrative: Discussed findings and recommendations with Dr. Pate. Will start sertraline 50mg PO QD for depression and anxiety. Continue lamotrigine 200mg PO QD. Recommend neurology consult due to continued confusion and impaired memory. - Assessments/Findings (1) Mental status alteration Problem: Acute (2) Bipolar II disorder Problem: Acute (3) Alcohol abuse Problem: Chronic
[2019-05-19] MEDS ORDERED: LISINOPRIL 10 MG TABLET PO SCH (13:15)
[2019-05-19] MEDS ORDERED: THIAMINE HCL 100 MG TABLET PO SCH (13:15)
--- NOTE | 2019-05-19 17:34 | DS ---
(1) Mental status alteration Problem: Acute (2) Behavioral change Problem: Acute (3) Bipolar II disorder Problem: Chronic (4) Alcohol abuse Problem: Chronic (5) Depression Problem: Chronic Qualifiers: Depression Type: major depressive disorder Major depression recurrence: recurrent Active/Remission status: currently active Major depression episode severity: moderate Qualified Code(s): F33.1 - Major depressive disorder, recurrent, moderate Description of Stay: 59-year-old male presented to the ER with worsening altered mental status and mentation over the last few days. Patient has a history of anxiety and depression with bipolar disorder. Patient was represented by his family as well upon admission. In the ER tox screen was negative his lab work was essentially benign. Patient had a brain MRI which did not show any acute processes though there was possible concern for normal pressure hydrocephalus though he was asymptomatic from that standpoint. Patient was admitted to the floor under observation due to his altered mental status. Evelyne Galindo visited the patient and thought that some of his issues were likely due to his psychiatric history but also felt like there was a neurological component to it was going on as his responses were inappropriate to the questions are being asked. Neurology was consulted Dr. Parks agrees to see him in the 2 days in his outpatient clinic. An EEG is also ordered for that same day. The patient has a follow-up appointment with Evelyne Galindo early next week. All this was discussed with his family in the room who are in agreement to help out and watch over take care of him until he is able to keep these appointments to determine what the next best course of action is for him. A note was written for him to excuse him from work for this week and early in the next week. His Lamictal was refilled and sent to his pharmacy. Evelyne started him on Zoloft which was also filled and sent to his pharmacy. Patient was much more conversive and alert today and ready to go home. He denied suicidal ideations at the time of discharge though he states he had endorsed them off and on throughout the last few weeks. He did have a plan for this. Again family agreed to watch over him until he is able to make these appointments. He will follow-up with his primary care doctor in 2 weeks. Procedures Performed: none Results and Findings: Lab Pending Results 05/18/19 09:38: WBC 6.6, RBC 4.67 L, Hgb 15.4, Hct 43.9, MCV 94.0, MCH 33.0 H, MCHC 35.1, RDW 13.5, Plt Count 303, MPV 9.5, Immature Gran % (Auto) 0.60 H, Immature Gran # (Auto) 0.04 H, Neutrophils % 71.9, Lymphocytes % 12.6 L, Monocytes % 12.6 H, Eosinophils % 1.8, Basophils % 0.5, Nucleated RBC % 0.0, Neutrophils # 4.8, Lymphocytes # 0.83 L, Monocytes # 0.8, Eosinophils # 0.1, Absolute Basophils 0.0 05/18/19 09:38: Sodium 142, Plasma Sodium 142, Potassium 4.0, Chloride 105, Carbon Dioxide 21.7 L, Anion Gap 19.3 H, BUN 23, Creatinine 1.52 H, Est GFR (Non-Af Amer) 50 L, BUN/Creatinine Ratio 15.1, Random Glucose 110, Calcium 9.3, Calcium Adj for Albumin 9.3, Total Bilirubin 0.7, AST 31, ALT 28, Alkaline Phosphatase 47 L, Troponin I 0.029, Total Protein 6.7, Albumin 3.6, Salicylates 7.6, Acetaminophen Less than 0.2 L, Ethyl Alcohol Less than 3.0 05/18/19 09:38: Ammonia 22.0 05/18/19 09:40: TSH 0.942 05/18/19 12:30: Urine Color Yellow, Urine Appearance Clear, Urine pH 6.0, Ur Specific [place] 1.010, Urine Protein Negative, Urine Glucose (UA) Negative, Urine Ketones Negative, Urine Blood Negative, Urine Nitrate Negative, Urine Bilirubin Negative, Urine Urobilinogen Normal, Ur Leukocyte Esterase Negative, Urine RBC None seen, Urine WBC Trace, Ur Epithelial Cells Trace, Urine Bacteria None seen, Urine Culture Comments No culture indicated 05/18/19 12:30: Urine Opiates Screen Negative, Barbiturate Screen Negative, Ur Phencyclidine Scrn Negative, Urine Amphetamine Negative, U Benzodiazepines Scrn Negative, Urine Cocaine Screen Negative, Urine Marijuana (THC) Negative Discharge Location: Home Disposition: Home self-care Condition: Stable Discharge Activity: Activity as tolerated Discharge Diet: General/regular food Referrals: Isidro Palmer MD [Primary Care Provider] - Additional Patient Instructions (free text): EEG on Friday05/21/19 at 1pm. 's office will call you with an appointment time, they will see you on Friday05/21/19. Evelyne Galindo appointment on FridayMay 24 at 3 pm. Follow up with in 2 weeks. Prescriptions (Any new or edited meds): lamoTRIgine [Lamictal] 200 mg PO QHS #30 tab Sertraline HCl [Zoloft] 50 mg PO DAILY #30 tab Complete Home Medications List: Complete Home Medication List: Aspirin [Aspirin Enteric Coated] 81 mg PO DAILY 07/13/15 Calcium Carbonate/Vitamin D3 [Calcium 500-Vit D3 400 Tablet] 1 ea PO DAILY 05/19/17 fenofibrate nanocrystallized 145 mg tablet 145 mg PO DAILY #90 tab 08/07/18 lansoprazole 30 mg capsule,delayed release 30 mg PO DAILY #30 cap 08/26/18 diflunisal 500 mg tablet 500 mg PO TID #90 tab 11/10/18 atorvastatin 40 mg tablet 40 mg PO HS #30 tab 12/07/18 ergocalciferol (vitamin D2) 50,000 unit capsule 50,000 unit PO QWEEK #14 cap 01/06/19 aripiprazole 15 mg tablet See Rx Instructions PO DAILY #4 tab 02/26/19 lorazepam 1 mg tablet 1 mg PO TID PRN 02/26/19 lurasidone 20 mg tablet 20 mg PO DAILY #15 tab 02/26/19 levothyroxine 25 mcg tablet See Rx Instructions .ROUTE .COMPLEX #90 tablet 04/26/19 probenecid 500 mg-colchicine 0.5 mg tablet 1 tab PO BID #60 tab 05/03/19 Sertraline HCl [Zoloft] 50 mg PO DAILY #30 tab 05/19/19 lamoTRIgine [Lamictal] 200 mg PO QHS #30 tab 05/19/19 Amb Orders for Discharge: EEG > 1 Hour * Time Frame: 05/21/19, Location: Respiratory Therapy
[2019-05-19 17:57] VITALS: BP 134/91
== END 2019-05-19 18:25 | disposition home or self-care (01) ==
LOC: MS 09:02 → ER 09:02 → MS 15:30
PROVIDERS: ADMIT Family Medicine; ATTEND Family Medicine
DX: F33.1 Major depressive disorder, recurrent, moderate; F10.10 Alcohol abuse, uncomplicated; F31.81 Bipolar II disorder; R41.82 Altered mental status, unspecified
CPT/HCPCS: 36415; 70450; 70553; 80053; 80307; 80320; 80329; 81001; 82140; 84443; 84484; 85025; 93005; 96365; 96366; 99284; A9576; G0378; G0480; G0481